=== PATIENT | female | born 1970 | race African-American/Black ===

== ENCOUNTER 2018-11-10 07:20 | Emergency (ER) | payer MEDICAID ==
[~2018-11-10] VITALS: Ht 165.1 cm; Wt 104.0 kg
[~2018-11-10 07:20] MED LIST: COR3 PO; FERR325C PO; FURO-151 PO; LISI-186 PO; METF-414 PO; PHEN100C4 PO; PROT40 PO; SPIR25TA PO
[2018-11-10] MEDS ORDERED: SODIUM CHLORIDE 0.9% 1,000 ML IV ONE (07:51)
[2018-11-10] MEDS ORDERED: ONDANSETRON HCL 4MG/2ML INJ IV STA (07:51)
[2018-11-10 08:32] LABS: HEMATOCRIT. 39.7 % (36.0-48.0); MEAN CORPUSCULAR HEMOGLOBIN 27.8 pg (28.0-32.0); MEAN CORPUSCULAR VOLUME 84.9 fL (81.0-99.0); MEAN PLATELET VOLUME 8.5 fl (7.4-10.4); PLATELET 300 x1000/uL (130-400); RED BLOOD CELL COUNT 4.68 mill/uL (4.2-5.4); RED CELL DISTRIBUTION WIDTH 15.5 % (11.6-14.6)
[2018-11-10 08:37] LABS: CHLORIDE 105 mEq/L (98-107); PROTHROMBIN TIME 10.1 sec (9.6-11.0)
[2018-11-10 09:40] LABS: PLATELET ESTIMATE NORMAL
[2018-11-10 09:52] LABS: CLARITY URINE CLOUDY (CLEAR); COLOR URINE DARK YELLOW (YELLOW); KETONES URINE TRACE (NEGATIVE); LEUKOCYTE ESTERASE URINE 2+ (NEGATIVE); NITRITE URINE NEGATIVE (NEGATIVE); OCCULT BLOOD URINE NEGATIVE (NEGATIVE); PH URINE 5.5 (4.5-8.0); PROTEIN URINE 1+ (NEGATIVE); SPECIFIC GRAVITY URINE 1.032 (1.005-1.030)
[2018-11-10] MEDS ORDERED: CEFTRIAXONE 1 G PREMIX 50 ML IV ONE (11:15)
[2018-11-10 13:00] VITALS: BP 130/70
== END 2018-11-10 13:58 | disposition home or self-care (01) ==
LOC: ER 07:20
DX: N30.00 Acute cystitis without hematuria (principal); R10.9 Unspecified abdominal pain; F03.90 Unspecified dementia, unspecified severity, without behavioral disturbance, psychotic disturbance, mood disturbance, and anxiety; K21.9 Gastro-esophageal reflux disease without esophagitis; M19.90 Unspecified osteoarthritis, unspecified site; I10 Essential (primary) hypertension; R56.9 Unspecified convulsions; I69.359 Hemiplegia and hemiparesis following cerebral infarction affecting unspecified side; I69.328 Other speech and language deficits following cerebral infarction
CPT/HCPCS: 36415; 74176; 80053; 81003; 81025; 83690; 85025; 85610; 87086; 96361; 96365; 96375; 99284; J0696; J2405; J7030

== ENCOUNTER 2019-01-15 17:55 | Inpatient (IN) | payer MEDICAID ==
[~2019-01-15] VITALS: Ht 172.7 cm; Wt 131.5 kg
[2019-01-15] MEDS ORDERED: ACETAMINOPHEN 325MG TABLET PO STA (18:19)
[2019-01-15] MEDS ORDERED: SODIUM CHLORIDE 0.9% 1000ML BAG (SEPSIS BOLUS) IV ONE (18:30)
[2019-01-15 18:51] LABS: HEMATOCRIT. 37.7 % (36.0-48.0); HEMOGLOBIN. 12.4 g/dL (12.0-16.0); MEAN CORPUSCULAR HEMOGLOBIN 27.1 pg (28.0-32.0); MEAN CORPUSCULAR VOLUME 82.8 fL (81.0-99.0); MEAN PLATELET VOLUME 8.7 fl (7.4-10.4); PLATELET 247 x1000/uL (130-400); RED BLOOD CELL COUNT 4.56 mill/uL (4.2-5.4); RED CELL DISTRIBUTION WIDTH 15.7 % (11.6-14.6)
[2019-01-15 18:57] LABS: CHLORIDE 103 mEq/L (98-107)
[2019-01-15 19:00] LABS: CLARITY URINE TURBID (CLEAR); COLOR URINE DARK YELLOW (YELLOW); KETONES URINE TRACE (NEGATIVE); LEUKOCYTE ESTERASE URINE 2+ (NEGATIVE); NITRITE URINE POSITIVE (NEGATIVE); OCCULT BLOOD URINE 1+ (NEGATIVE); PROTEIN URINE 2+ (NEGATIVE); SPECIFIC GRAVITY URINE 1.027 (1.005-1.030)
[2019-01-15 19:00] LABS: HCG SCREEN NEGATIVE
[2019-01-15 19:26] LABS: PLATELET ESTIMATE NORMAL
[2019-01-15] MEDS ORDERED: PIPERACILLIN/TAZ 3.375G PREMIX 50 ML IV ONE (19:45)
[2019-01-15] MEDS ORDERED: VANCOMYCIN 1 G PREMIX 200 ML IV ONE (19:45)
[2019-01-15] MEDS ORDERED: ONDANSETRON HCL 4MG/2ML INJ IV PRN (21:00)
[2019-01-15] MEDS ORDERED: ENOXAPARIN 40MG/0.4ML SYR SUBCUT SCH (21:00)
[2019-01-15] MEDS ORDERED: MAGNESIUM/ALUMINUM HYDROXIDE/SIMETHICONE 30ML UDC PO PRN (21:00)
[2019-01-15] MEDS ORDERED: CLONIDINE 0.1MG TABLET PO PRN (21:00)
[2019-01-15 22:35] VITALS: BP 97/60
[2019-01-15 22:40] VITALS: BP 97/60
[2019-01-15] MEDS ORDERED: CEFTRIAXONE 1 G PREMIX 50 ML IV SCH (23:00)
[2019-01-15] MEDS ORDERED: DEXTROSE 50% WATER 50ML SYRINGE IV PRN (23:15)
[2019-01-16 04:00] VITALS: BP 103/57
[2019-01-16] MEDS: ACETAMINOPHEN 325MG TABLET PO PRN ×2 (05:07→16:47)
[2019-01-16] MEDS: BLOOD SUGAR DIAGNOSTIC STRIP TEST SCH ×4 (06:28→21:52)
[2019-01-16 07:01] LABS: HEMATOCRIT. 34.8 % (36.0-48.0); HEMOGLOBIN. 11.1 g/dL (12.0-16.0); MEAN CORPUSCULAR HEMOGLOBIN 26.5 pg (28.0-32.0); MEAN CORPUSCULAR VOLUME 83.4 fL (81.0-99.0); MEAN PLATELET VOLUME 8.8 fl (7.4-10.4); PLATELET 216 x1000/uL (130-400); RED BLOOD CELL COUNT 4.18 mill/uL (4.2-5.4); RED CELL DISTRIBUTION WIDTH 15.7 % (11.6-14.6)
[2019-01-16] MEDS: INSULIN LISPRO 100 UNITS/ML SUBCUT SCH ×4 (07:02→21:00)
[2019-01-16 07:20] LABS: CHLORIDE 106 mEq/L (98-107)
[2019-01-16 08:00] VITALS: BP 130/80
[2019-01-16 10:05] VITALS: BP 137/66
[2019-01-16] MEDS: ENOXAPARIN 40MG/0.4ML SYR SUBCUT SCH ×2 (10:08→21:52)
[2019-01-16] MEDS ORDERED: POTASSIUM CHLORIDE 20MEQ TABLET SR PO SCH (11:08)
[2019-01-16] MEDS ORDERED: SPIRONOLACTONE 25MG TABLET PO SCH (11:09)
[2019-01-16 12:00] VITALS: BP 127/71
[2019-01-16] MEDS: SODIUM CHLORIDE 0.9% 1,000 ML IV SCH ×2 (12:43→22:07)
[2019-01-16] MEDS: ALLOPURINOL 100 MG TABLET PO SCH (12:48)
[2019-01-16 13:41] LABS: PLATELET ESTIMATE NORMAL
[2019-01-16 15:29] LABS: PHOSPHORUS 1.6 mg/dL (2.5-4.9)
[2019-01-16 15:34] LABS: HCG SCREEN NEGATIVE
[2019-01-16 16:47] LABS: CREATINE KINASE 74 IU/L (26-192)
[2019-01-16 16:48] LABS: CREATINE KINASE MB FRACTION < 1.0 ng/mL (0.5-3.6)
[2019-01-16 16:49] LABS: T4 FREE 1.01 ng/dL (0.76-1.46)
[2019-01-16 20:00] VITALS: BP 120/81
[2019-01-16] MEDS: PHENYTOIN SODIUM EXTENDED 100MG CAPSULE PO SCH (21:51)
[2019-01-16] MEDS: FAMOTIDINE 20MG TABLET PO SCH (21:52)
[2019-01-16] MEDS ORDERED: CEFTRIAXONE 1 G PREMIX 50 ML IV SCH (23:55)
[2019-01-17] VITALS: BP 124/79
[2019-01-17] MEDS ORDERED: LORAZEPAM 0.5MG TABLET PO PRN (00:15)
[2019-01-17] MEDS: ACETAMINOPHEN 325MG TABLET PO PRN ×2 (01:05→16:54)
[2019-01-17 04:00] VITALS: BP 122/64
[2019-01-17] MEDS: BLOOD SUGAR DIAGNOSTIC STRIP TEST SCH ×4 (06:52→20:31)
[2019-01-17] MEDS: SODIUM CHLORIDE 0.9% 1,000 ML IV SCH ×2 (07:07→17:00)
[2019-01-17] MEDS: INSULIN LISPRO 100 UNITS/ML SUBCUT SCH ×4 (07:07→20:32)
[2019-01-17 07:58] LABS: BASOPHILS % 0.7 % (0.0-2.0); EOSINOPHILS % 0.8 % (0.0-5.0); HEMATOCRIT. 34.8 % (36.0-48.0); HEMOGLOBIN. 11.1 g/dL (12.0-16.0); LYMPHOCYTES % 8.8 % (20.0-50.0); MEAN CORPUSCULAR HEMOGLOBIN 26.4 pg (28.0-32.0); MEAN CORPUSCULAR VOLUME 82.8 fL (81.0-99.0); NEUTROPHILS % 77.7 % (40.0-76.0); PLATELET 211 x1000/uL (130-400); RED BLOOD CELL COUNT 4.21 mill/uL (4.2-5.4); RED CELL DISTRIBUTION WIDTH 15.5 % (11.6-14.6)
[2019-01-17 08:00] VITALS: BP 137/90
[2019-01-17 08:24] LABS: CHLORIDE 108 mEq/L (98-107)
[2019-01-17 08:40] LABS: CREATINE KINASE 45 IU/L (26-192)
[2019-01-17 08:43] LABS: CREATINE KINASE MB FRACTION < 1.0 ng/mL (0.5-3.6)
[2019-01-17] MEDS: ALLOPURINOL 100 MG TABLET PO SCH (09:39)
[2019-01-17] MEDS: PHENYTOIN SODIUM EXTENDED 100MG CAPSULE PO SCH ×2 (09:39→20:24)
[2019-01-17] MEDS: ENOXAPARIN 40MG/0.4ML SYR SUBCUT SCH ×2 (09:40→20:24)
[2019-01-17 12:00] VITALS: BP 128/85
[2019-01-17 16:00] VITALS: BP 114/65
[2019-01-17] MEDS ORDERED: POTASSIUM CHLORIDE 20MEQ/PACKET PO NR (16:45)
[2019-01-17 20:00] VITALS: BP 121/76
[2019-01-17] MEDS: FAMOTIDINE 20MG TABLET PO SCH (20:24)
[2019-01-17] MEDS: PIPERACILLIN/TAZOBACTAM 3.375 G in DEXT 5% WATER 100 ML IV SCH (20:24)
[2019-01-18] VITALS: BP 163/85
[2019-01-18] MEDS: PIPERACILLIN/TAZOBACTAM 3.375 G in DEXT 5% WATER 100 ML IV SCH ×2 (01:34→08:59)
[2019-01-18] MEDS: SODIUM CHLORIDE 0.9% 1,000 ML IV SCH ×2 (02:51→14:55)
[2019-01-18 04:00] VITALS: BP 122/77
[2019-01-18] MEDS: BLOOD SUGAR DIAGNOSTIC STRIP TEST SCH ×4 (07:20→21:00)
[2019-01-18] MEDS: INSULIN LISPRO 100 UNITS/ML SUBCUT SCH ×4 (07:45→21:00)
[2019-01-18 08:00] VITALS: BP 134/92
[2019-01-18] MEDS: PHENYTOIN SODIUM EXTENDED 100MG CAPSULE PO SCH ×2 (08:59→22:03)
[2019-01-18] MEDS: ALLOPURINOL 100 MG TABLET PO SCH (08:59)
[2019-01-18] MEDS: ENOXAPARIN 40MG/0.4ML SYR SUBCUT SCH ×2 (08:59→22:03)
[2019-01-18 10:54] LABS: BASOPHILS % 0.9 % (0.0-2.0); EOSINOPHILS % 6.6 % (0.0-5.0); HEMATOCRIT. 32.9 % (36.0-48.0); HEMOGLOBIN. 10.4 g/dL (12.0-16.0); MEAN CORPUSCULAR HEMOGLOBIN 26.3 pg (28.0-32.0); MEAN CORPUSCULAR VOLUME 83.6 fL (81.0-99.0); MEAN PLATELET VOLUME 9.4 fl (7.4-10.4); MONOCYTES % 13.2 % (2.0-8.0); NEUTROPHILS % 61.3 % (40.0-76.0); PLATELET 210 x1000/uL (130-400); RED BLOOD CELL COUNT 3.93 mill/uL (4.2-5.4); RED CELL DISTRIBUTION WIDTH 15.4 % (11.6-14.6)
[2019-01-18 12:00] VITALS: BP 129/84
[2019-01-18 12:11] LABS: CHLORIDE 109 mEq/L (98-107)
[2019-01-18] MEDS: CEFAZOLIN 1000MG PREMIX 50 ML IV SCH ×2 (14:54→22:03)
[2019-01-18 16:00] VITALS: BP 132/87
[2019-01-18 20:00] VITALS: BP 133/89
[2019-01-18] MEDS: FAMOTIDINE 20MG TABLET PO SCH (22:04)
[2019-01-19] VITALS: BP 123/81
[2019-01-19 04:00] VITALS: BP 122/73
[2019-01-19] MEDS: SODIUM CHLORIDE 0.9% 1,000 ML IV SCH ×2 (04:55→09:00)
[2019-01-19] MEDS: CEFAZOLIN 1000MG PREMIX 50 ML IV SCH (05:00)
[2019-01-19] MEDS: BLOOD SUGAR DIAGNOSTIC STRIP TEST SCH ×2 (07:20→12:19)
[2019-01-19] MEDS: INSULIN LISPRO 100 UNITS/ML SUBCUT SCH ×2 (07:37→12:19)
[2019-01-19 07:45] LABS: CHLORIDE 107 mEq/L (98-107)
[2019-01-19 08:06] LABS: EOSINOPHILS % 6.7 % (0.0-5.0); HEMATOCRIT. 36.3 % (36.0-48.0); HEMOGLOBIN. 11.5 g/dL (12.0-16.0); LYMPHOCYTES % 20.9 % (20.0-50.0); MEAN CORPUSCULAR HEMOGLOBIN 26.1 pg (28.0-32.0); MEAN CORPUSCULAR VOLUME 82.6 fL (81.0-99.0); MEAN PLATELET VOLUME 8.9 fl (7.4-10.4); MONOCYTES % 12.7 % (2.0-8.0); NEUTROPHILS % 58.7 % (40.0-76.0); PLATELET 258 x1000/uL (130-400); RED BLOOD CELL COUNT 4.39 mill/uL (4.2-5.4); RED CELL DISTRIBUTION WIDTH 15.3 % (11.6-14.6)
[2019-01-19 08:16] VITALS: BP 110/73
[2019-01-19] MEDS: ALLOPURINOL 100 MG TABLET PO SCH (09:44)
[2019-01-19] MEDS: PHENYTOIN SODIUM EXTENDED 100MG CAPSULE PO SCH (09:44)
[2019-01-19] MEDS: ENOXAPARIN 40MG/0.4ML SYR SUBCUT SCH (09:44)
[2019-01-19 11:03] VITALS: BP 110/73
[2019-01-19 12:41] VITALS: BP 124/95
== END 2019-01-19 15:27 | DRG 720 ==
LOC: ER 18:19 → EDBEDREQ 18:29 → 6WST 20:31 → EDBEDREQSVC 20:33 → EDBEDREQ 20:33 → EDBEDREQTM 20:33 → ENRESERV 21:36
PROVIDERS: ADMIT Internal Medicine Nephrology; ATTEND Internal Medicine Nephrology
DX: A41.9 Sepsis, unspecified organism (principal); E46 Unspecified protein-calorie malnutrition; I50.9 Heart failure, unspecified; N39.0 Urinary tract infection, site not specified; F03.90 Unspecified dementia, unspecified severity, without behavioral disturbance, psychotic disturbance, mood disturbance, and anxiety; I11.0 Hypertensive heart disease with heart failure; I69.351 Hemiplegia and hemiparesis following cerebral infarction affecting right dominant side; Z68.41 Body mass index [BMI] 40.0-44.9, adult; I82.501 Chronic embolism and thrombosis of unspecified deep veins of right lower extremity; B96.20 Unspecified Escherichia coli [E. coli] as the cause of diseases classified elsewhere; E11.9 Type 2 diabetes mellitus without complications; D64.9 Anemia, unspecified; E66.9 Obesity, unspecified; G40.909 Epilepsy, unspecified, not intractable, without status epilepticus; K21.9 Gastro-esophageal reflux disease without esophagitis; M10.9 Gout, unspecified; M19.90 Unspecified osteoarthritis, unspecified site; Z79.899 Other long term (current) drug therapy; I69.320 Aphasia following cerebral infarction; Z22.322 Carrier or suspected carrier of Methicillin resistant Staphylococcus aureus; Z82.49 Family history of ischemic heart disease and other diseases of the circulatory system; Z95.828 Presence of other vascular implants and grafts; Z79.84 Long term (current) use of oral hypoglycemic drugs
CPT/HCPCS: 36415; 71045; 74021; 78580; 80048; 80061; 81003; 82550; 82553; 82962; 83036; 83605; 83735; 83880; 84100; 84439; 84443; 84484; 84703; 85379; 87077; 87186; 87804; 93005; 93306; 93970; 97162; 99291; C1893; J0690; J0696; J1650; J2543; J3370; J7030; J7040; J7060

== ENCOUNTER 2019-08-28 22:44 | Emergency (ER) | payer MEDICAID ==
[~2019-08-28] VITALS: Ht 180.3 cm; Wt 115.0 kg
[2019-08-28 23:36] LABS: BASOPHILS % 3.4 % (0.0-2.0); EOSINOPHILS % 5.2 % (0.0-5.0); HEMATOCRIT. 28.2 % (36.0-48.0); HEMOGLOBIN. 7.9 g/dL (12.0-16.0); LYMPHOCYTES % 38.5 % (20.0-50.0); MEAN CORPUSCULAR HEMOGLOBIN 15.2 pg (28.0-32.0); MEAN CORPUSCULAR VOLUME 54.6 fL (81.0-99.0); MEAN PLATELET VOLUME 8.9 fl (7.4-10.4); MONOCYTES % 9.4 % (2.0-8.0); NEUTROPHILS % 43.5 % (40.0-76.0); PLATELET 310 x1000/uL (130-400); RED BLOOD CELL COUNT 5.17 mill/uL (4.2-5.4); RED CELL DISTRIBUTION WIDTH 21.5 % (11.6-14.6)
[2019-08-28 23:43] LABS: CHLORIDE 105 mEq/L (98-107)
[2019-08-28 23:46] LABS: INR 0.9; PROTHROMBIN TIME 10.1 sec (9.6-11.0)
[2019-08-29 01:38] LABS: PLATELET ESTIMATE NORMAL
[2019-08-29 01:58] VITALS: BP 125/78
== END 2019-08-29 01:59 | disposition home or self-care (01) ==
LOC: ER 22:44
DX: D64.9 Anemia, unspecified (principal); I11.0 Hypertensive heart disease with heart failure; I50.9 Heart failure, unspecified; Z86.73 Personal history of transient ischemic attack (TIA), and cerebral infarction without residual deficits; E11.9 Type 2 diabetes mellitus without complications; K21.9 Gastro-esophageal reflux disease without esophagitis; Z79.899 Other long term (current) drug therapy
CPT/HCPCS: 36415; 80048; 85025; 86850; 86900; 99283